=== PATIENT | male | born 1975 | race Caucasian/White ===

== ENCOUNTER → 2019-06-16 09:14 | Outpatient (BNVA) | payer OTHER, MEDICARE, SELFPAY | PROVIDERS: Family Provider Family Medicine; PCP Family Medicine; Visit Provider Podiatrist Foot & Ankle Surgery | DX: M79.671 Pain in right foot (principal); L97.512 Non-pressure chronic ulcer of other part of right foot with fat layer exposed; E11.42 Type 2 diabetes mellitus with diabetic polyneuropathy | CPT/HCPCS: 73630 ==

== ENCOUNTER 2019-06-30 13:00 | Outpatient (RCR) | payer OTHER, MEDICARE, SELFPAY ==
--- NOTE | 2019-06-29 | USCV_ITS ---
George Simmons Age: 43 Gender: M : 1975 Exam Date: 06/29/2019 08:09 Ordering Phys: Nisreen Vazquez Technologist: Adarsh Turner Exam Location: [facility] [place] Indication: HISTORY: Ulcers. PROCEDURES: Bilateral duplex Venous Insufficiency study of the Deep and Superficial systems was carried out according to normal protocol with the patient in supine positon for deep system and dependent position for the superficial system. FINDINGS: All deep veins demonstrated compressibility without evidence of intraluminal thrombus or increased echogenicity. Spectral analysis of Doppler signals demonstrates normal response to compression maneuvers indicating patency without obstruction. Reflux determinations were made with the patient in the dependent position, the weight being on the contralateral leg. Vein measurements and reflux times are listed below were applicable. No notable reflux was seen at this time. CONCLUSIONS No evidence of DVT in the above-mentioned identifiable veins. No significant venous reflux were noted in the above-mentioned veins. The venous dimensions and the depth from the surface are as mentioned above Dr Shannen Leslie MD [facility] (Electronically Signed) Final Date: 30 June 2019 08:58 S
--- NOTE | 2019-06-29 | NM_ITS ---
WS: [id number] THREE-PHASE BONE SCAN HISTORY: REDNESS, NON HEALING ULCER COMPARISON: 06/16/2019 foot radiograph. MRI LEFT foot 05/26/2018 Patient is is injected with 26.3 mCi Tc99m HDP intravenously. Immediate angiographic phase imaging is performed over the area of concern. Static blood pool imaging also performed. Two-hour whole-body sc intigrams performed in anterior and posterior projections. Additional large field of view imaging sub mitted as necessary. 3 phase bone scan imaging centered over the feet. There is very mild increased uptake on all 3 phases involving the first toes of each foot. Greatest u ptake is in the distal phalanx of the RIGHT first toe. There is additional more moderate uptake on 3 phases involving the IP joint and the head of the proxi mal first phalanx of the LEFT foot. Moderate AC joint arthritis and bilateral arthritis at the knees and ankles. Greater uptake at the RI GHT ankle. Normal soft tissue uptake. Both kidneys are identified. NM/NM bone 3 phase [id number] IMPRESSION: 1. Cellulitis and osteomyelitis involving the distal phalanx first toe RIGHT fo ot with extension to the IP joint. 2. Cellulitis and osteomyelitis involving the base proximal phalanx first toe L EFT foot with extension to the IP joint to the distal phalanx.
== END 2019-07-01 23:59 | disposition home or self-care (01) ==
LOC: RAD 13:00
PROVIDERS: Family Provider Family Medicine; PCP Family Medicine; Visit Provider Nurse Practitioner Family
DX: E11.621 Type 2 diabetes mellitus with foot ulcer (principal); L97.512 Non-pressure chronic ulcer of other part of right foot with fat layer exposed; I10 Essential (primary) hypertension; F17.200 Nicotine dependence, unspecified, uncomplicated; L03.031 Cellulitis of right toe; L03.032 Cellulitis of left toe; L03.116 Cellulitis of left lower limb; L03.115 Cellulitis of right lower limb; M79.674 Pain in right toe(s)
CPT/HCPCS: 11042; 78315; 87070; 87077; 87176; 87186; 87205; 93970; A6446; A9561

== ENCOUNTER 2019-07-08 13:33 | Outpatient (CLI) | payer OTHER, MEDICARE, SELFPAY ==
--- NOTE | 2019-07-08 | USCV_ITS ---
George Simmons Age: 43 Gender: M : 1975 Exam Date: 07/08/2019 13:39 Ordering Phys: Nisreen Vazquez Technologist: Carey Hawley Exam Location: [facility] – [place] Indication: REDNESS, NON-HEALING ULCER RIGHT LEFT Brachial 126.00 mmHg Brachial 130.00 mmHg Pressure (mmHg) Waveform Pressure (mmHg) Waveform 138.00 Above Knee 166.00 135.00 Below Knee 133.00 138.00 DIETETIC AIDE 142.00 135.00 DPA 132.00 1.06 Ankle/Brachial Index 1.09 83.00 Pre-Exercise Toe Pressure 134.00 0.64 Pre-Exercise Toe/Brachial Index 1.03 FINDINGS Rt great toe bandaged. Used Rt second toe for exam. Normal resting ABIs bilaterally. Normal resting TBI on the left side. Slightly diminished resting TBI on the right side. Significant pressure gradient at the infrapopliteal level on the left side CONCLUSIONS Slightly diminished resting TBI on the right side, may suggest a mild PAD. Pressure gradient at the infrapopliteal level on the left side could be related to technical issues. Clinical correlation is recommended Dr Shannen Leslie MD [facility] (Electronically Signed) Final Date: 08 Jul 2019 18:52 S
== END 2019-07-08 13:34 | disposition home or self-care (01) ==
LOC: RAD 13:37
PROVIDERS: PCP Family Medicine; Visit Provider Nurse Practitioner Family
DX: L97.909 Non-pressure chronic ulcer of unspecified part of unspecified lower leg with unspecified severity (principal)
CPT/HCPCS: 93923

== ENCOUNTER 2019-07-08 14:17 | Outpatient (CLI) | payer OTHER, MEDICARE, SELFPAY | END 2019-07-08 14:18 | disposition home or self-care (01) | LOC: WOUND 07-09 13:53 | PROVIDERS: PCP Family Medicine; Visit Provider Nurse Practitioner Family | DX: E11.621 Type 2 diabetes mellitus with foot ulcer (principal); L97.512 Non-pressure chronic ulcer of other part of right foot with fat layer exposed | CPT/HCPCS: 11042 ==

== ENCOUNTER 2019-07-08 15:40 | Outpatient (CLI) | payer OTHER, MEDICARE, SELFPAY ==
[2019-07-08 16:32] LABS: Blood Urea Nitrogen 12 mg/dL (6-20); Glomerular Filtration Rate 123.1 mL/min (90-130)
== END 2019-07-08 15:41 | disposition home or self-care (01) ==
LOC: LAB 15:45
PROVIDERS: Visit Provider Nurse Practitioner Family
DX: M86.9 Osteomyelitis, unspecified (principal); L98.499 Non-pressure chronic ulcer of skin of other sites with unspecified severity; Z79.2 Long term (current) use of antibiotics
CPT/HCPCS: 36415; 82565; 84520

== ENCOUNTER 2019-07-15 13:42 | Outpatient (CLI) | payer OTHER, MEDICARE, SELFPAY | END 2019-07-15 13:43 | disposition home or self-care (01) | LOC: WOUND 13:44 | PROVIDERS: Visit Provider Nurse Practitioner Family | DX: E11.621 Type 2 diabetes mellitus with foot ulcer (principal); L97.512 Non-pressure chronic ulcer of other part of right foot with fat layer exposed | CPT/HCPCS: 11042 ==

== ENCOUNTER 2019-07-22 13:43 | Outpatient (CLI) | payer OTHER, MEDICARE, SELFPAY | END 2019-07-22 13:44 | disposition home or self-care (01) | LOC: WOUND 07-23 08:53 | PROVIDERS: Visit Provider Nurse Practitioner Family | DX: E11.621 Type 2 diabetes mellitus with foot ulcer (principal); L97.512 Non-pressure chronic ulcer of other part of right foot with fat layer exposed | CPT/HCPCS: 11042 ==

== ENCOUNTER 2019-07-29 08:00 | Outpatient (CLI) | payer OTHER, MEDICARE, SELFPAY ==
[2019-07-29 09:35] LABS: Basophils % 0.5 %; Eosinophils # 0.3 10^3/uL (0.0-0.8); Hematocrit 45.3 % (42.0-52.0); Hemoglobin 15.6 g/dL (11.7-16.6); Lymphocytes # 2.3 10^3/uL (0.8-4.8); Lymphocytes % 36.3 %; Mean Corpuscular HGB Conc 34.4 g/dL (30.0-36.0); Mean Corpuscular Hemoglobin 29.5 pg (28.0-34.0); Mean Corpuscular Volume 85.8 fL (80-94); Monocytes # 0.5 10^3/uL (0.2-0.9); Monocytes % 7.3 %; Neutrophils # 3.3 10^3/uL (1.8-7.7); Neutrophils % 51.3 %; Nucleated Red Blood Cells % 0 %; Platelet Count 131 10^3/cmm (130-400); Red Blood Count 5.28 10^6/uL (4.1-5.3); Red Cell Distribution Width 12.8 % (12.1-15.1); White Blood Count 6.5 10^3/uL (4.0-10.0)
[2019-07-29 09:46] LABS: Anion Gap 14.3 (5-19); Blood Urea Nitrogen 9 mg/dL (6-20); Calcium 9.1 mg/dL (8.5-10.5); Carbon Dioxide 26 mmol/L (22-29); Chloride 103 mmol/L (98-107); Glucose 132 mg/dL (65-115); Osmolality Calculated 286 mOsm/kg (285-295); Potassium 4.3 mmol/L (3.5-5.1); Sodium 139 mmol/L (136-145)
== END 2019-07-29 08:01 | disposition home or self-care (01) ==
LOC: WOUND 08:03
PROVIDERS: Visit Provider Nurse Practitioner Family
DX: E11.621 Type 2 diabetes mellitus with foot ulcer (principal); L97.512 Non-pressure chronic ulcer of other part of right foot with fat layer exposed
CPT/HCPCS: 11042; 80048; 85025

== ENCOUNTER 2019-08-05 08:25 | Outpatient (CLI) | payer OTHER, MEDICARE, SELFPAY | END 2019-08-05 08:26 | disposition home or self-care (01) | LOC: WOUND 08:26 | PROVIDERS: Visit Provider Nurse Practitioner Family | DX: E11.621 Type 2 diabetes mellitus with foot ulcer (principal); L97.512 Non-pressure chronic ulcer of other part of right foot with fat layer exposed | CPT/HCPCS: 11042 ==

== ENCOUNTER 2019-08-12 08:31 | Outpatient (CLI) | payer OTHER, MEDICARE, SELFPAY | END 2019-08-12 08:32 | disposition home or self-care (01) | LOC: WOUND 08:34 | PROVIDERS: Visit Provider Nurse Practitioner Family | DX: E11.621 Type 2 diabetes mellitus with foot ulcer (principal); L97.512 Non-pressure chronic ulcer of other part of right foot with fat layer exposed | CPT/HCPCS: 11042 ==

== ENCOUNTER 2019-08-26 08:31 | Outpatient (CLI) | payer OTHER, MEDICARE, SELFPAY | END 2019-08-26 08:32 | disposition home or self-care (01) | LOC: WOUND 08:34 | PROVIDERS: Visit Provider Nurse Practitioner Family | DX: E11.621 Type 2 diabetes mellitus with foot ulcer (principal); L97.512 Non-pressure chronic ulcer of other part of right foot with fat layer exposed | CPT/HCPCS: 11042; A6446 ==

== ENCOUNTER 2019-09-02 08:15 | Outpatient (CLI) | payer OTHER, MEDICARE, SELFPAY | END 2019-09-02 08:16 | disposition home or self-care (01) | LOC: WOUND 08:16 | PROVIDERS: Visit Provider Nurse Practitioner Family | DX: E11.621 Type 2 diabetes mellitus with foot ulcer (principal); L97.512 Non-pressure chronic ulcer of other part of right foot with fat layer exposed | CPT/HCPCS: 11042 ==

== ENCOUNTER 2019-09-16 13:41 | Outpatient (CLI) | payer OTHER, MEDICARE, SELFPAY | END 2019-09-16 13:42 | disposition home or self-care (01) | LOC: WOUND 13:44 | PROVIDERS: Visit Provider Emergency Medicine | DX: E11.621 Type 2 diabetes mellitus with foot ulcer (principal); L97.512 Non-pressure chronic ulcer of other part of right foot with fat layer exposed | CPT/HCPCS: 11042; 87070; 87077; 87176; 87186; 87205 ==

== ENCOUNTER 2019-09-30 13:03 | Outpatient (CLI) | payer OTHER, MEDICARE, SELFPAY | END 2019-09-30 13:04 | disposition home or self-care (01) | LOC: WOUND 13:06 | PROVIDERS: Visit Provider Nurse Practitioner Family | DX: Z09 Encounter for follow-up examination after completed treatment for conditions other than malignant neoplasm (principal) | CPT/HCPCS: G0463 ==

== ENCOUNTER 2019-10-14 14:34 | Outpatient (CLI) | payer OTHER, MEDICARE, SELFPAY ==
--- NOTE | 2019-10-14 14:55 | XR_ITS ---
WS: [id number] Chest 2 views, 10/14/2019 Clinical Data: LUMBAR BACK PAIN Comparison: Portable chest, 12/01/2005. Findings: No nodules, masses or effusions are seen. The heart is normal. The pulmonary vascularity is not increased. No pneumonia or pneumothorax is seen. Epidural stimulator wires end at approximately the T8 vertebral body level. XR/XR chest 2V* [id number] Impression: Negative chest.
--- NOTE | 2019-10-14 14:55 | XR_ITS ---
WS: [id number] KUB, 10/14/2019 Clinical Data: LUMBAR BACK PAIN Comparison: None. Findings: No abnormal intraabdominal masses or calcifications are seen. There is no dilatated small bowel or ev idence of obstruction. There is a moderate amount of fecal material throughout the colon. The epidural stimulator generator is overlying the left ilium. XR/XR abdomen 1V* [id number] Impression: Negative KUB.
== END 2019-10-14 14:35 | disposition home or self-care (01) ==
PROVIDERS: Family Provider Family Medicine; PCP Family Medicine; Visit Provider Family Medicine
DX: M54.5 Low back pain (principal)
CPT/HCPCS: 71046; 74018

== ENCOUNTER 2019-12-28 09:34 | Outpatient (RCR) | payer OTHER, MEDICARE, SELFPAY | END 2020-01-01 23:59 | disposition home or self-care (01) | LOC: SPT 09:34 | PROVIDERS: PCP Family Medicine; Referring Provider Student in an Organized Health Care Education/Training Program; Visit Provider Student in an Organized Health Care Education/Training Program | DX: G89.29 Other chronic pain (principal); M54.5 Low back pain | CPT/HCPCS: 97110; 97162 ==

== ENCOUNTER 2020-01-02 06:00 | Outpatient (RCR) | payer OTHER, MEDICARE, SELFPAY | END 2020-01-31 23:59 | disposition home or self-care (01) | LOC: SPT 06:00 | PROVIDERS: PCP Family Medicine; Visit Provider Student in an Organized Health Care Education/Training Program | DX: M54.5 Low back pain (principal); G89.29 Other chronic pain | CPT/HCPCS: 97110 ==

== ENCOUNTER 2020-02-01 06:00 | Outpatient (RCR) | payer OTHER, MEDICARE, SELFPAY | END 2020-02-04 13:37 | disposition home or self-care (01) | LOC: SPT 06:00 | PROVIDERS: PCP Family Medicine; Visit Provider Student in an Organized Health Care Education/Training Program | DX: M54.89 Other dorsalgia (principal); G89.29 Other chronic pain | CPT/HCPCS: 97110 ==

== ENCOUNTER → 2021-09-19 15:01 | Outpatient (BNVA) | payer MEDICARE, SELFPAY | PROVIDERS: PCP Family Medicine; Visit Provider Podiatrist Foot & Ankle Surgery | DX: L84 Corns and callosities (principal); E11.42 Type 2 diabetes mellitus with diabetic polyneuropathy | CPT/HCPCS: 99213 ==

== ENCOUNTER → 2021-12-03 10:28 | Outpatient (BNVA) | payer MEDICARE, SELFPAY | PROVIDERS: PCP Family Medicine; Visit Provider Podiatrist Foot & Ankle Surgery | DX: E11.621 Type 2 diabetes mellitus with foot ulcer (principal); L97.522 Non-pressure chronic ulcer of other part of left foot with fat layer exposed; L03.116 Cellulitis of left lower limb; E11.42 Type 2 diabetes mellitus with diabetic polyneuropathy; L84 Corns and callosities | CPT/HCPCS: 99214 ==

== ENCOUNTER → 2022-06-10 13:32 | Outpatient (BNVA) | payer MEDICARE, SELFPAY | PROVIDERS: PCP Family Medicine; Visit Provider Podiatrist Foot & Ankle Surgery | DX: E11.42 Type 2 diabetes mellitus with diabetic polyneuropathy (principal); E11.621 Type 2 diabetes mellitus with foot ulcer; L84 Corns and callosities; L03.116 Cellulitis of left lower limb; L97.522 Non-pressure chronic ulcer of other part of left foot with fat layer exposed; M79.5 Residual foreign body in soft tissue | CPT/HCPCS: 99213 ==

== ENCOUNTER → 2022-11-06 07:28 | Outpatient (BNVA) | payer MEDICARE, SELFPAY | PROVIDERS: PCP Family Medicine; Visit Provider Podiatrist Foot & Ankle Surgery | DX: E11.621 Type 2 diabetes mellitus with foot ulcer; L97.512 Non-pressure chronic ulcer of other part of right foot with fat layer exposed; E11.42 Type 2 diabetes mellitus with diabetic polyneuropathy; M79.671 Pain in right foot | CPT/HCPCS: 36415; 73630; 80053; 85025; 85651; 86140; 87070; 87075; 87077; 87186; 87205; 99214 ==

== ENCOUNTER → 2022-12-12 09:16 | Outpatient (BNVA) | payer MEDICARE, SELFPAY | PROVIDERS: PCP Family Medicine; Visit Provider Podiatrist Foot & Ankle Surgery | DX: E11.621 Type 2 diabetes mellitus with foot ulcer (principal); L97.512 Non-pressure chronic ulcer of other part of right foot with fat layer exposed; E11.42 Type 2 diabetes mellitus with diabetic polyneuropathy | CPT/HCPCS: 73630; 87070; 87075; 87205; 99213 ==

== ENCOUNTER → 2022-12-26 15:00 | Outpatient (BNVA) | payer MEDICARE, SELFPAY | PROVIDERS: PCP Family Medicine; Visit Provider Podiatrist Foot & Ankle Surgery | DX: E11.42 Type 2 diabetes mellitus with diabetic polyneuropathy (principal) | CPT/HCPCS: 99213 ==

== ENCOUNTER → 2023-01-15 15:25 | Outpatient (BNVA) | payer MEDICARE, SELFPAY | PROVIDERS: PCP Family Medicine; Visit Provider Podiatrist Foot & Ankle Surgery | DX: E11.42 Type 2 diabetes mellitus with diabetic polyneuropathy (principal); L97.512 Non-pressure chronic ulcer of other part of right foot with fat layer exposed; E11.621 Type 2 diabetes mellitus with foot ulcer | CPT/HCPCS: 99213 ==

== ENCOUNTER → 2024-11-25 14:20 | Outpatient (BNVA) | payer MEDICARE, SELFPAY | PROVIDERS: PCP Family Medicine; Visit Provider Podiatrist Foot & Ankle Surgery | DX: E11.42 Type 2 diabetes mellitus with diabetic polyneuropathy (principal); L84 Corns and callosities; Z79.85 Long-term (current) use of injectable non-insulin antidiabetic drugs | CPT/HCPCS: 99213 ==

== ENCOUNTER → 2024-12-28 09:00 | Outpatient (BNVA) | payer MEDICARE, SELFPAY | PROVIDERS: PCP Family Medicine; Visit Provider Podiatrist Foot & Ankle Surgery | DX: L84 Corns and callosities (principal); E11.42 Type 2 diabetes mellitus with diabetic polyneuropathy; E11.8 Type 2 diabetes mellitus with unspecified complications; M20.42 Other hammer toe(s) (acquired), left foot; Z79.85 Long-term (current) use of injectable non-insulin antidiabetic drugs | CPT/HCPCS: 28010 ==

== ENCOUNTER → 2025-01-05 11:01 | Outpatient (BNVA) | payer MEDICARE, SELFPAY | PROVIDERS: PCP Family Medicine; Visit Provider Dermatology | DX: L73.2 Hidradenitis suppurativa (principal); L72.0 Epidermal cyst; L82.1 Other seborrheic keratosis; Z08 Encounter for follow-up examination after completed treatment for malignant neoplasm; Z85.820 Personal history of malignant melanoma of skin | CPT/HCPCS: 11200; 99204 ==

== ENCOUNTER → 2025-02-02 09:13 | Outpatient (BNVA) | payer MEDICARE, SELFPAY | PROVIDERS: PCP Family Medicine; Visit Provider Dermatology | DX: L73.2 Hidradenitis suppurativa (principal); L72.0 Epidermal cyst; Z08 Encounter for follow-up examination after completed treatment for malignant neoplasm; Z85.828 Personal history of other malignant neoplasm of skin; Z79.899 Other long term (current) drug therapy | CPT/HCPCS: 99214 ==

== ENCOUNTER → 2025-02-08 09:11 | Outpatient (BNVA) | payer MEDICARE, SELFPAY | PROVIDERS: PCP Family Medicine; Visit Provider Podiatrist Foot & Ankle Surgery | DX: E11.42 Type 2 diabetes mellitus with diabetic polyneuropathy (principal); L84 Corns and callosities; M20.42 Other hammer toe(s) (acquired), left foot; Z79.85 Long-term (current) use of injectable non-insulin antidiabetic drugs | CPT/HCPCS: 99213 ==